=== PATIENT | male | born 1990 | race Caucasian/White ===

== ENCOUNTER 2016-10-03 05:23 | Emergency (ER) | payer OTHER ==
[2016-10-03] MEDS ORDERED: ACETAMINOPHEN 325 MG TABLET PO ONE (05:35)
--- NOTE | 2016-10-03 07:28 | ER Document Report ---
ED General - General Mode of Arrival: Ambulatory Information source: Patient TRAVEL OUTSIDE OF THE [place] IN LAST 30 DAYS: No - HPI Patient complains to provider of: Injury from Fall Onset: Just prior to arrival Onset/Duration: Sudden Associated symptoms: Other - Left wrist pain, right ankle pain Exacerbated by: Movement, Walking Relieved by: Remaining still <MALAIKA GONZALES - Last Filed: 10/03/16 08:13> <SRUTHI VALLE - Last Filed: 10/03/16 08:59> - General Chief Complaint: Ankle Injury Stated Complaint: FALL,RIGHT ANKLE AND LEFT ARM INJURY Notes: Patient is a 25-year-old male presenting to the emergency department after falling, twisting his right ankle and landing on his left wrist. Patient complains of pain in both his left wrist and right ankle. Patient states that he was doing some cardio workouts this morning which included running the stairs at his apartment when he fell. (MALAIKA GONZALES) - HPI Context: Fell while running stairs (MALAIKA GONZALES) - Related Data Allergies/Adverse Reactions: No Known Allergies Allergy (Verified 10/03/16 05:26) Home Medications: Current Home Medications Cetirizine HCl [Zyrtec] 1 cap PO PRN PRN 10/03/16 [History] Past Medical History - General Information source: Patient - Social History Smoking Status: Former Smoker - Quit July 2016 Frequency of alcohol use: Occasional Drug Abuse: None Family History: Reviewed & Not Pertinent Patient has suicidal ideation: No Patient has homicidal ideation: No Renal/ Medical History: Denies: Hx Peritoneal Dialysis <MALAIKA GONZALES - Last Filed: 10/03/16 08:13> Review of Systems - Review of Systems Constitutional: No symptoms reported EENT: No symptoms reported Cardiovascular: No symptoms reported Respiratory: No symptoms reported Gastrointestinal: No symptoms reported Genitourinary: No symptoms reported Male Genitourinary: No symptoms reported Musculoskeletal: See HPI, Other - Right ankle pain, left wrist pain Skin: No symptoms reported Hematologic/Lymphatic: No symptoms reported Neurological/Psychological: No symptoms reported -: Yes All other systems reviewed and negative <MALAIKA GONZALES - Last Filed: 10/03/16 08:13> Physical Exam - General General appearance: Appears well, Alert - HEENT Head: Normocephalic, Atraumatic Eyes: Normal Pupils: PERRL - Respiratory Respiratory status: No respiratory distress Breath sounds: Normal - Cardiovascular Rhythm: Regular - Abdominal Inspection: Normal Tenderness: Nontender - Back Back: Normal, Nontender - Extremities Wrist: Tender - Left wrist tender dorsally at the radial ulnar joint, mild swelling, mild tenderness over scaphoid region, no navicular tenderness. Ankle: Tender - Tenderness over the right medial malleolus, no swelling, no tenderness over the lateral malleolus, no tenderness to the proximal fifth metatarsal. - Neurological Neuro grossly intact: Yes Cognition: Normal Orientation: AAOx4 [place] Coma Scale Eye Opening: Spontaneous [place] Coma Scale Verbal: Oriented [place] Coma Scale Motor: Obeys Commands Jimmie Coma Scale Total: 15 Speech: Normal - Psychological Associated symptoms: Normal affect, Normal mood - Skin Skin Temperature: Warm Skin Moisture: Dry Skin Color: Normal <MALAIKA GONZALES - Last Filed: 10/03/16 08:13> <SRUTHI VALLE - Last Filed: 10/03/16 08:59> - Vital signs Vitals: Temp Pulse Resp BP Pulse Ox 98.0 F 99 14 148/68 H 98 10/03/16 05:27 10/03/16 05:27 10/03/16 05:27 10/03/16 05:27 10/03/16 05:27 Course - Diagnostic Test Radiology reviewed: Image reviewed, Reports reviewed - X-rays of the right ankle and foot and left wrist do not show fractures <SRUTHI VALLE - Last Filed: 10/03/16 08:59> - Vital Signs Vital signs: Temp Pulse Resp BP Pulse Ox 98.1 F 70 15 140/70 H 96 10/03/16 07:00 10/03/16 07:00 10/03/16 07:00 10/03/16 07:00 10/03/16 07:00 Discharge <MALAIKA GONZALES - Last Filed: 10/03/16 08:13> <SRUTHI VALLE - Last Filed: 10/03/16 08:59> - Discharge Clinical Impression: Right ankle sprain Qualifiers: Encounter type: initial encounter Involved ligament of ankle: deltoid ligament Qualified Code(s): S93.421A - Sprain of deltoid ligament of right ankle, initial encounter Left wrist sprain Qualifiers: Encounter type: initial encounter Qualified Code(s): S63.502A - Unspecified sprain of left wrist, initial encounter Condition: Stable Disposition: HOME, SELF-CARE Additional Instructions: Sprained Ankle and Wrist: Your sprained ankle and wrist results from stretching of the ligaments which support the joints. The ligaments will require time and protection in order to heal properly. Many ankle sprains are quite disabling, and should be taken seriously. The usual treatment for an ankle sprain is cold packs; protection with tape , splints, or wraps; elevation; and staying off the ankle for at least a day. As the ankle improves, you can walk IF it's not painful to bear weight. Sports are best postponed until healing is complete. More serious sprains usually require strengthening exercises after early healing. The usual treatment for a wrist sprain is a volar cock-up splint, elevation and cold packs. Your physician has assessed the seriousness of the ligament injury to your ankle and wrist. However, the treatment may change, depending on how your ankle progresses. If further exams were recommended, it is important that you follow through. Call the doctor if your foot becomes numb, painful, or severely swollen. Ankle Stirrup Splint: You are to use an ankle brace called a stirrup splint. This type of brace allows you to place greater stresses on the ankle without risk of re-injury, and is often used for more severe ankle injuries such as avulsion fractures and ligament ruptures. The splint can be worn over a sock or tape. For proper support, wear the splint with a shoe over it. It's important that the splint fit properly. Adjust the heel tension, if needed. If your splint has air bladders, peel back the bottom of each air bladder, then move the Velcro attachment of the heel strap up or down. Air bladder pressure can be adjusted by pulling up the valve at the top, threading the air tube down into the main bladder, then blowing air into the bladder or squeezing it out. The two sides of the stirrup can be moved forward or back on your ankle by changing the attachment of the main straps. If you are unable to use the ankle comfortably in the splint, return for re -evaluation. USE THE SPLINTS TO PROTECT THE JOINTS. ELEVATE THE AFFECTED JOINTS. USE ICE-PACKS TODAY. TAKE MOTRIN FOR PAIN IF NEEDED. FOLLOW UP WITH YOUR DOCTOR IF NOT IMPROVING. Scribe Attestation: 10/03/16 08:58 I personally performed the services described in the documentation, reviewed and edited the documentation which was dictated to the scribe in my presence, and it accurately records my words and actions. (SRUTHI VALLE) Scribe Documentation - Scribe Written by Scribe:: Malaika Gonzales 10/03/2016 [id number] acting as scribe for :: Bernard <MALAIKA GONZALES - Last Filed: 10/03/16 08:13>
[2016-10-03 09:25] VITALS: BP 127/55
== END 2016-10-03 09:25 | disposition home or self-care (01) ==
LOC: ER 05:23
DX: S93.421A Sprain of deltoid ligament of right ankle, initial encounter (principal); S63.502A Unspecified sprain of left wrist, initial encounter; M25.571 Pain in right ankle and joints of right foot; M25.532 Pain in left wrist; W10.9XXA Fall (on) (from) unspecified stairs and steps, initial encounter; Y93.02 Activity, running; Y92.009 Unspecified place in unspecified non-institutional (private) residence as the place of occurrence of the external cause; Z87.891 Personal history of nicotine dependence
CPT/HCPCS: 99283; 73610; 73110; L1902; L3984